=== PATIENT | female | born 1955 | race Caucasian/White ===

== ENCOUNTER 2017-04-29 18:01 | Emergency (ER) | payer BC ==
[2017-04-29] MEDS ORDERED: AMOXicillin 250 MG CAP ONE (20:12)
[2017-04-29] MEDS ORDERED: Naproxen 500 MG TAB ONE (20:12)
[2017-04-29] MEDS ORDERED: Oxymetazoline HCl 0.05% ( 15 ML ) ONE (20:16)
== END 2017-04-29 20:24 | disposition home or self-care (01) ==
LOC: MADERS 18:01
DX: J01.90 Acute sinusitis, unspecified (principal); I10 Essential (primary) hypertension; Z79.899 Other long term (current) drug therapy
CPT/HCPCS: 99283

== ENCOUNTER 2018-07-14 07:53 | Emergency (ER) | payer BC ==
[2018-07-14 08:28] LABS: Bilirubin Negative (Negative); Blood, Urine Trace (Negative); Clarity Clear (Clear); Glucose, Urine (Dipstick) Negative (Negative); Leukocyte Trace (Negative); Nitrite Negative (Negative); Protein, Urine (Dipstick) Negative (Neg-Trace); pH, Urine 6.5 (5.0-9.0)
[2018-07-14 08:30] LABS: Bacteria/HPF Rare-Few HPF (None Seen); RBC/HPF 0-3 HPF (0-3); WBC/HPF 0-3 HPF (0-3)
== END 2018-07-14 08:05 | disposition home or self-care (01) ==
LOC: MADERS 07:53
DX: J20.9 Acute bronchitis, unspecified (principal); J01.90 Acute sinusitis, unspecified; E11.9 Type 2 diabetes mellitus without complications; I10 Essential (primary) hypertension; Z79.899 Other long term (current) drug therapy
CPT/HCPCS: 36416; 81003; 81015; 99283

== ENCOUNTER 2020-11-07 20:08 | Emergency (ER) | payer BC ==
[2020-11-07] MEDS ORDERED: Erythromycin Base 0.5% Ophth Oint 3.5 gm Tube ONE (21:21)
[2020-11-07] MEDS ORDERED: Ibuprofen 800 MG TAB ONE (21:21)
== END 2020-11-07 21:51 | disposition home or self-care (01) ==
LOC: MADERS 20:08
DX: H10.9 Unspecified conjunctivitis (principal); I10 Essential (primary) hypertension; E11.9 Type 2 diabetes mellitus without complications; Z79.899 Other long term (current) drug therapy; Z79.84 Long term (current) use of oral hypoglycemic drugs
CPT/HCPCS: 99283

== ENCOUNTER 2023-05-27 09:07 | Emergency (ER) | payer BC | END 2023-05-27 10:15 | disposition home or self-care (01) | LOC: MADERS 09:07 | DX: J32.9 Chronic sinusitis, unspecified (principal); B96.89 Other specified bacterial agents as the cause of diseases classified elsewhere; I10 Essential (primary) hypertension; I11.0 Hypertensive heart disease with heart failure; I50.9 Heart failure, unspecified; E11.9 Type 2 diabetes mellitus without complications; Z79.899 Other long term (current) drug therapy | CPT/HCPCS: 99282 ==